=== PATIENT | female | born 1950 | race Caucasian/White ===

== ENCOUNTER → 2016-10-12 | Outpatient (CLI) | payer BC ==
--- NOTE | 2016-10-14 06:54 | MM ---
Reason for exam: screening (asymptomatic). Last mammogram was performed 1 year and 4 months ago. History: Patient is postmenopausal. Family history of breast cancer in paternal aunt. Benign US left guided mammotome of the left breast, March 12, 2008. Took hormonal contraceptives for 4 years beginning at age 20. Physical Findings: A clinical breast exam by your physician is recommended on an annual basis and results should be correlated with mammographic findings. MG 3D Screening Mammo W/Cad Bilateral CC and MLO view(s) were taken. Prior study comparison: June 21, 2015, left breast MG 3d work up w/cad LT. June 14, 2015, bilateral MG screening mammo w CAD. April 20, 2014, bilateral MG screening mammo w CAD. April 18, 2013, bilateral digital screening mammo w/CAD. The breast tissue is heterogeneously dense. This may lower the sensitivity of mammography. Previous mammotome biopsy in the left breast. There is chronic nodularity in the left breast. No significant changes when compared with prior studies. ASSESSMENT: Negative, BI-RAD 1 RECOMMENDATION: Routine screening mammogram of both breasts in 1 year.
== END | disposition home or self-care (01) ==
LOC: RADMAMWWP 16:33
PROVIDERS: ATTEND Obstetrics & Gynecology
DX: Z12.31 Encounter for screening mammogram for malignant neoplasm of breast (principal); Z80.3 Family history of malignant neoplasm of breast
CPT/HCPCS: 77063; G0202

== ENCOUNTER → 2017-03-05 | Outpatient (CLI) | payer BC ==
--- NOTE | 2017-03-05 16:02 | BD ---
EXAMINATION TYPE: MG DEXA axial skeleton. DATE OF EXAM: 03/05/2017 COMPARISON: NONE CLINICAL HISTORY: 66-year-old female known osteopenia Height: 65 Weight: 177.2 FRAX RISK QUESTIONS: Alcohol (3 or more units per day): no Family History (Parent hip fracture): no Glucocorticoids (More than 3mos): no (Ex: prednisone, prednisolone, methylprednisolone, dexamethasone, and hydrocortisone). History of Fracture in Adulthood: yes Secondary Osteoporosis: 1. Type 1 Diabetes: no 2. Hyperthyroidism: no 3. Menopause before 45: no 4. Malnutrition: no 5. Chronic liver disease: no Rheumatoid Arthritis: no Current Tobacco Use: no RISK FACTORS HISTORY OF: Hip Fracture (Right/Left): no Spine Fracture: no History of Wrist Fracture: yes right-2015 Surgery to Spine/Hip(right/left)/Wrist (right/left): no Family History of Osteoporosis: yes Active: yes Diet low in dairy products/other sources of calcium: no Postmenopausal woman: age 56 Lost more than 2 inches in height since high school: no Frequent falls: no Poor Health: no Hyperparathyroidism: no Adrenal Insufficiency: no MEDICATIONS: none Additional History: EXAM MEASUREMENTS: Bone mineral densitometry was performed using the [employer] Mover System. Bone mineral density as measured about the Lumbar spine is: ----- L1-L4(G/cm2): 0.955 T Score Values are as follows: ----- L2: -3.1 ----- L3: -2.0 ----- L4: -0.7 ----- L1-L4: -1.9 Bone mineral density has: decreased -1.9 % since study of: 04.18.2013 Bone mineral density about the R hip (g/cm2): 0.830 Bone mineral density about the L hip (g/cm2): 0.747 T Score values are as follows: -----R Neck: -1.5 -----L Neck: -2.1 -----R Total: -1.7 -----L Total: -1.7 Bone mineral density has: decreases -7.3 % since study of: 04.18.2013 IMPRESSION: Osteoporosis (T Score less than -2.5) as noted by T Score values at the There is increased fracture risk and therapy is usually indicated based on age. Re-Screen 1-2 years. NOTE: T-SCORE=SD OF THE YOUNG ADULT MEAN.
== END | disposition home or self-care (01) ==
LOC: RADBDWWP 08:05
PROVIDERS: ATTEND Obstetrics & Gynecology
DX: M81.0 Age-related osteoporosis without current pathological fracture (principal)
CPT/HCPCS: 77080

== ENCOUNTER → 2017-03-05 | Outpatient (CLI) | payer BC ==
[2017-03-05 16:37] LABS: EKG EKG PERFORMED
[2017-03-05 17:02] LABS: CH 28.3; CHCM 32.9; HCT 40.6 % (34.0-46.0); HDW 2.37; HGB 14.1 gm/dL (11.4-16.0); MCHC 34.6 g/dL (31.0-37.0); MCV 86.6 fL (80.0-100.0); Mean Platelet Volume 7.2; RBC 4.69 m/uL (3.80-5.40); RDW 13.4 % (11.5-15.5); WBC 7.2 k/uL (3.8-10.6)
[2017-03-05 17:08] LABS: Partial Thromboplastin Time 24.5 sec (22.0-30.0); Prothrombin Time 10.5 sec (9.0-12.0)
[2017-03-05 17:10] LABS: ALT 34 U/L (9-52); AST 19 U/L (14-36); Alkaline Phosphatase 105 U/L (38-126); Anion Gap 12 mmol/L; Blood Urea Nitrogen 19 mg/dL (7-17); Calcium 9.6 mg/dL (8.4-10.2); Carbon Dioxide 25 mmol/L (22-30); Chloride 106 mmol/L (98-107); Glucose 109 mg/dL (74-99); Non-African American GFR(MDRD) >60 (>60 ml/min/1.73 sqM); Potassium 4.3 mmol/L (3.5-5.1); Sodium 143 mmol/L (137-145); Total Bilirubin 0.3 mg/dL (0.2-1.3); Total Protein 7.1 g/dL (6.3-8.2)
== END | disposition home or self-care (01) ==
LOC: LABPAT 16:14
PROVIDERS: ATTEND Orthopaedic Surgery
DX: Z01.810 Encounter for preprocedural cardiovascular examination (principal); Z01.812 Encounter for preprocedural laboratory examination
CPT/HCPCS: 80053; 85027; 85610; 85730; 87070; 93005

== ENCOUNTER → 2017-03-12 | Outpatient (CLI) | payer BC ==
[2017-03-12 13:28] LABS: Appearance,Urine Clear (Clear); Bilirubin,Urine Negative (Negative); Glucose,Urine (UA) Negative (Negative); Ketones,Urine Negative (Negative); Leukocyte Esterase,Urine Small (Negative); Mucus,Urine Occasional /hpf; Nitrite,Urine Negative (Negative); Particle Count 3237; Protein,Urine Negative (Negative); Specific Gravity,Urine 1.015 (1.001-1.035); Squamous Epithelial Cell,Urine <1 /hpf (0-4); UA Billing (MACRO vs. MICRO) MICRO; Urobilinogen,Urine <2.0 mg/dL (<2.0); WBC,Urine 1 /hpf (0-5)
== END | disposition home or self-care (01) ==
LOC: LABPAT 12:44
PROVIDERS: ATTEND Orthopaedic Surgery
DX: Z01.812 Encounter for preprocedural laboratory examination (principal)
CPT/HCPCS: 81001

== ENCOUNTER 2017-03-29 10:30 | Inpatient (IN) | payer BC ==
[2017-03-23 14:45] VITALS: BMI 29.2
[~2017-03-29 10:30] MED LIST: ACETAMINOPHEN TAB 500 MG TAB PO ONE; DEXAMETHASONE SOD PHOSPHATE 10 MG/ML 1 ML VIAL IV ONE; HYDROmorphone 1 MG/ML 1 ML SYRINGE IVP PRN; MELOXICAM 7.5 MG TAB PO ONE; MIDAZOLAM 2 MG/2 ML VIAL IV PRN; ONDANSETRON 4 MG/2 ML VIAL IVP ONE; SCOPOLAMINE 1.5MG/72HR PATCH TRANSDERM ONE; TRANEXAMIC ACID 1,000 MG in SODIUM CHLORIDE 0.9% 100 ML IVPB ONE; ceFAZolin 2 GM in SODIUM CHLORIDE 0.9% 100 ML IVPB ONE
[2017-03-29] MEDS ORDERED: ROPIVACAINE 246.25 MG, EPINEPHrine 0.5 MG, KETOROLAC 30 MG, cloNIDine HCL/PF 80 MCG, WA... MISCELLANE ONE ×5 (11:47)
[2017-03-29] MEDS ORDERED: LIDOCAINE 1% 20 ML VIAL (10MG/ML) FOR IV START INTRADERMA ONE (13:17)
[2017-03-29] MEDS: LACTATED RINGERS 1,000 ML IV SCH (13:18)
[2017-03-29] MEDS ORDERED: fentaNYL (PF) 50 MCG/ML 2 ML AMP IV ONE (13:45)
[2017-03-29] MEDS ORDERED: fentaNYL (PF) 50 MCG/ML 2 ML AMP ONE (14:42)
[2017-03-29] MEDS ORDERED: MIDAZOLAM 2 MG/2 ML VIAL ONE (14:42)
[2017-03-29] MEDS ORDERED: ceFAZolin 3,000 MG in SODIUM CHLORIDE 0.9% IRRIGATIO 3,000 ML IRRIGATION ONE (15:13)
[2017-03-29] MEDS ORDERED: ROPIVACAINE 1,100 MG, SODIUM CHLORIDE 0.9% 330 ML MISCELLANE PRN ×2 (15:47)
--- NOTE | 2017-03-29 15:48 | P.ONQ ---
Anesthesiology Proc Note - PNB - Peripheral Nerve Block Performed Right Adductor Canal Indication: Acute Post-Operative Pain, Dx/Pain Location, Requested by physician (Dr june vargas) Sedation Type: Sedate with meaningful contact maintained Preparation: Sterile Dressing Position: Supine Catheter: Indwelling Needle Types: Other (see comment) (Tomas) Needle Size: 100mm (4") Needle Gauge: 18 Technique: Ultrasound Injectate: 0.5% Ropivacaine (see comment for volume) (20cc) Blood Aspirated: No Pain Paresthesia on Injection Noted: No Resistance on Injection: Normal Events: Uneventful and Well Tolerated
[2017-03-29] MEDS ORDERED: LACTATED RINGERS 1,000 ML IV ONE (15:49)
--- NOTE | 2017-03-29 16:07 | P.OP ---
Date of Procedure: 03/29/17 Preoperative Diagnosis: Severe osteoarthritis right knee Postoperative Diagnosis: Severe osteoarthritis right knee Procedure(s) Performed: Right total knee arthroplasty Implants: [employer] Oxinium femoral component size 5, right [employer] Frieda II right nonporous tibial baseplate size 5 [employer]hew size 13 mm Legion XLPE dished articular insert, size 5-6 [employer] Frieda II resurfacing patellar component, 32 mm All components were cemented using Pepper Simplex P bone cement with tobramycin The articulation is ceramic on polyethylene. Anesthesia: spinal Surgeon: Regino Etienne Roofing Sales Representative #1: Tabitha Matson Estimated Blood Loss (ml): 50 Pathology: other (Bone and cartilage) Condition: stable Disposition: PACU Indications for Procedure: After failure of conservative treatment we discussed the surgical and nonsurgical treatment options at length. Patient wishes to proceed with a total knee arthroplasty. Complications specific to this procedure were discussed at length, including but not limited to infection, bleeding, stiffness , and nerve injury. Patient is aware of all these complications and informed consent was obtained Operative Findings: The operative findings are consistent with severe osteoarthritis of the right knee Description of Procedure: Patient was seen in the preoperative area consent was reviewed and operative site was marked with a skin marker. An adductor canal pain catheter was placed by anesthesia in the preoperative area. Patient was then brought to the operating room and given preoperative antibiotics intravenously. A spinal anesthetic was administered by the anesthesia department. A Boyce catheter was inserted by the nursing staff. A tourniquet was placed on the upper thigh and the lower extremity was prepped and draped in usual sterile fashion. A gram of transexamic acid was given. A universal timeout was then performed which confirmed the patient's name, surgical site, ALLERGIES, and consent. The lower extremity was then exsanguinated and tourniquet was inflated to 250 mmHg. A standard and anterior midline approach to the knee was performed. The skin and subcutaneous tissue was dissected down to the patellar tendon. A medial parapatellar arthrotomy was then performed. The knee was then extended, the patellar was everted, and the knee was again flexed. Anterior horns of both menisci were excised, and a release was performed to the posterior medial aspect of the knee. On gross visual inspection, there was complete loss of articular cartilage in the medial and patellofemoral joint spaces. There was also significant cartilage damage in the lateral compartment. There were multiple periarticular osteophytes which were then removed with a Ronguer. The femoral canal was then opened with the appropriate drill, and the intramedullary femoral cutting guide was then placed and set for 4 of valgus. The distal femoral cutting block was then pinned in place, and the distal femur was then cut. The cutting block was then removed and the cut was checked for flatness. Next, the sizing guide was then placed and set for 3 external rotation based off of the epicondylar axis and Whitesides line. After the femur was sized, the appropriate 4-in-1 cutting block was then pinned in place. The anterior condyles were cut without notching. The posterior and chamfer cuts were performed while protecting the collateral ligaments. The cutting block was then removed, and the femoral canal was plugged with autologous bone. Attention was then directed to the tibia. The remaining ACL was removed with a Ronguer, and the tibia was then gently subluxed forward with a large bent knee retractor. Any remaining menisci was excised. The posterior lateral corner was cauterized in order to cauterize the lateral geniculate artery. The extra medullary tibial cutting guide was then placed, set for the appropriate rotation , slope, and depth of resection. The proximal tibia cutting guide was then pinned in place. Proximal tibia was then cut and sized. Next trials were then placed with the appropriate-sized insert. The knee was able to fully extend and flex to 130 and was stable throughout all range of motion. The knee was then extended, patella everted. Patella was then measured, and then using an osteotomy guide, the patella was cut at the appropriate level. The patella was then measured and drilled and the patella trial was then placed. The knee was then taken through range of motion with the patella trial and the patella tracked normally. The knee was then extended patella trial was then removed and the patella was everted. Knee was then flexed and lug holes were drilled through the femoral trial and the femoral trial was then removed. The tibial was then exposed, and the tibial broach guide was then pinned in place after it was set for the appropriate rotation to allow for the most coverage without overhang. The tibia was then reamed and broached. The cut surfaces of bone were then irrigated with pulsatile lavage. The posterior structures were injected with the ropivacaine solution. The knee was also irrigated with Irrisept solution. The components were then opened, the cement was mixed, and the components were then cemented in place. The cement was allowed to harden with the knee in full extension. While the cement was hardening, the remaining soft tissues were then injected with a ropivacaine solution, which consisted of 246.25 mg of ropivacaine, 0.5 mg of epinephrine, 30 mg of Toradol, 80 g of clonidine, and 48.45 mL of sterile water, for a total of 100 mL of fluid injected. After the cemented hardened. The tourniquet was released, and hemostasis was obtained. A second gram of transexamic acid was given. The knee was again irrigated. The knee was again taken through range of motion and found to be stable throughout all range of motion of 0-130 , and the patella tracked normally. The fascia was then closed with #2 strata fix suture. The subcutaneous tissue was closed with 3-0 Vicryl and 3-0 strata fix. Dermabond tape was used for the skin and placed with the knee in flexion. The patient was placed in a sterile dressing. Patient was then transferred to recovery room in stable condition. The student assistant LYLE Castrejon was required due the complexity surgery and the need for a skilled surgical assistant certified. She assisted in positioning, draping, retraction, and closure of the wound.
[2017-03-29] MEDS ORDERED: HYDROmorphone 1 MG/ML 1 ML SYRINGE IVP PRN ×2 (16:25)
[2017-03-29] MEDS ORDERED: MAGNESIUM HYDROXIDE 2,400 MG/10 ML CUP PO PRN (16:25)
[2017-03-29] MEDS ORDERED: ONDANSETRON 4 MG/2 ML VIAL IVP PRN (16:25)
[2017-03-29] MEDS ORDERED: NALOXONE 0.4 MG/ML 1 ML VIAL IV PRN (16:25)
[2017-03-29] MEDS ORDERED: BISACODYL 10 MG SUPP RECTAL PRN (16:25)
[2017-03-29] MEDS ORDERED: DIAZEPAM 5 MG TAB PO PRN ×2 (16:25)
[2017-03-29] MEDS ORDERED: HYDROcodone/APAP 5-325MG 1 EACH TAB PO PRN (16:25)
[2017-03-29] MEDS ORDERED: NA PHOS,M-B/NA PHOS,DI-BA 133 ML ENEMA RECTAL PRN (16:25)
--- NOTE | 2017-03-29 16:47 | XR ---
EXAMINATION TYPE: XR knee limited RT DATE OF EXAM: 03/29/2017 CLINICAL HISTORY: Right knee pain and arthritis status post total knee replacement. TECHNIQUE: Portable AP and crosstable lateral views of the right knee are obtained immediately posto peratively. COMPARISON: None FINDINGS: Metallic hardware from total right total knee arthroplasty is seen and appears satisfactor y in alignment and position. There is evidence of recent surgery with diffuse subcutaneous gas , lelo tical skin munira, and percutaneous suprapatellar surgical drain noted. IMPRESSION: METALLIC HARDWARE FROM TOTAL RIGHT TOTAL KNEE ARTHROPLASTY IS SATISFACTORY IN ALIGNMENT.
[2017-03-29] MEDS: HYDROmorphone 1 MG/ML 1 ML SYRINGE IVP PRN ×2 (18:31→21:46)
[2017-03-29] MEDS: SODIUM CHLORIDE 0.9% 1,000 ML IV SCH ×2 (20:32→23:55)
[2017-03-29] MEDS: SENNOSIDES-DOCUSATE SODIUM 1 EACH TAB PO SCH (20:36)
[2017-03-29] MEDS: ASPIRIN 325 MG TAB PO SCH (20:36)
[2017-03-29] MEDS: ceFAZolin 2 GM in SODIUM CHLORIDE 0.9% 100 ML IVPB SCH (23:55)
[2017-03-30] MEDS: LACTATED RINGERS 1,000 ML IV SCH (03:40)
[2017-03-30] MEDS: HYDROmorphone 1 MG/ML 1 ML SYRINGE IVP PRN (06:01)
[2017-03-30 07:20] LABS: Basophils % (A) 0 %; CH 29.2; CHCM 32.8; Eosinophils % (A) 0 %; HCT 37.9 % (34.0-46.0); HDW 2.32; HGB 11.8 gm/dL (11.4-16.0); Luc # (Auto) 0.12; Luc % (Auto) 1; Lymphocytes # (A) 1.7 k/uL (1.0-4.8); Lymphocytes % (A) 11 %; MCH 27.9 pg (25.0-35.0); MCHC 31.2 g/dL (31.0-37.0); MCV 89.3 fL (80.0-100.0); Mean Platelet Volume 7.2; Monocytes # (A) 0.6 k/uL (0-1.0); Monocytes % (A) 4 %; Neutrophils # (A) 13.1 k/uL (1.3-7.7); Neutrophils % (A) 84 %; RBC 4.25 m/uL (3.80-5.40); RDW 13.8 % (11.5-15.5); WBC 15.5 k/uL (3.8-10.6); WBC (Perox) 15.89
[2017-03-30] MEDS: ASPIRIN 325 MG TAB PO SCH ×2 (07:36→21:46)
[2017-03-30] MEDS: MELOXICAM 7.5 MG TAB PO SCH (07:36)
[2017-03-30] MEDS: hydrOXYzine PAMOATE 25 MG CAP PO PRN ×3 (07:37→19:23)
[2017-03-30] MEDS: HYDROcodone/APAP 5-325MG 1 EACH TAB PO PRN ×3 (07:37→19:23)
[2017-03-30] MEDS: ceFAZolin 2 GM in SODIUM CHLORIDE 0.9% 100 ML IVPB SCH (09:08)
--- NOTE | 2017-03-30 09:10 | P.PN ---
Progress Note - Text The patient is status post right adductor canal catheter placement. The catheter was placed for postoperative pain control, status post total right arthroplasty. Ropivacaine 0.2% is infusing at 8 mLs per hour. The patient has no complaints of right lower extremity numbness or weakness. Patient's VAS score is 1 -10. Assessment: Patient's adductor canal catheter is in place and working appropriately. Plan: continue infusion and adjust it as needed.
--- NOTE | 2017-03-30 12:22 | P.PN ---
Subjective Principal diagnosis: S/p right total knee arthroplasty This is a well-appearing 66-year-old female who is status post right total knee arthroplasty. This is postoperative day #1. Patient was seen and evaluated at the bedside with Dr. Regino Etienne today. Patient states she is doing well and has been up and out of bed several times. Patient states her pain is under control. Patient has no new complaints today. Objective - Vital Signs Vital signs: Vital Signs Temp 97.6 F 03/30/17 07:00 Pulse 68 03/30/17 07:00 Resp 16 03/30/17 07:00 BP 107/69 03/30/17 07:00 Pulse Ox 96 03/30/17 07:00 Intake & Output 03/29/17 03/30/17 03/30/17 18:59 06:59 18:59 Intake Total 2401 1770 480 Output Total 850 200 Balance 1551 1770 280 Weight 79.832 kg Intake: IV 2401 Intake, IV Titration 770 Amount Sodium Chloride 0.9% 1, 770 000 ml @ 70 mls/hr IV . [id number] [facility] Rx#:[id number] Oral 1000 480 Output: Urine 800 200 Uretheral (Boyce) 200 Estimated Blood Loss 50 Other: Voiding Method Indwelling Catheter Indwelling Catheter # Voids 1,100 - Exam Vital signs are stable. Patient is in no acute distress and is alert and oriented 3. Calf is soft and nontender. Dressing is intact. Neurovascular status intact. Patient has full foot and ankle motion. - Labs CBC & Chem 7: 03/30/17 06:59 Labs: Abnormal Lab Results - Last 24 Hours (Table) 03/30/17 Range/Units 06:59 WBC 15.5 H (3.8-10.6) k/uL Neutrophils # 13.1 H (1.3-7.7) k/uL Assessment and Plan (1) Primary osteoarthritis of right knee Status: Acute (2) S/P total knee arthroplasty Status: Acute Plan: #1 Continue with routine postoperative care. #2 Anticoagulation with aspirin. #3 Physical therapy and CPM today. #4 Appreciated input from medicine. #5 Anticipate discharge home with home care likely tomorrow.
--- NOTE | 2017-03-30 13:37 | P.CONS ---
History of Present Illness - Reason for Consult Consult date: 03/30/17 Medical management Requesting physician: Regino Etienne - History of Present Illness This is an 70-year-old female patient of Dr. Dann Samson with history of osteoarthritis and prolapsed uterus, with interstitial for Mnire's of the proximal arthritis of the right knee ended up going for right total arthroplasty that was done successfully by Dr. Etienne Lanoxin the patient for medical management. Patient sitting up in bed in no acute distress no chest pain, shortness breath, she denies any abdominal pain, nausea, vomiting, and some headache. Review of Systems Constitutional: Denies chills, Denies lethargy, Denies malaise, Denies weight gain Eyes: denies blurred vision, denies bulging eye, denies decreased vision, denies diplopia Ears: deny: decreased hearing Ears, nose, mouth and throat: Denies dysphagia, Denies neck lump, Denies sore throat Cardiovascular: Denies chest pain, Denies dyspnea on exertion, Denies high blood pressure, Denies irregular heart beat, Denies phlebitis, Denies rapid heart beat, Denies shortness of breath Respiratory: Denies congestion, Denies cough, Denies cough with sputum, Denies home oxygen, Denies sleep apnea, Denies snoring, Denies wheezing Gastrointestinal: Denies abdominal pain, Denies bloating, Denies hematemesis, Denies melena, Denies nausea, Denies vomiting Genitourinary: Denies flank pain, Denies urgency Musculoskeletal: Denies myalgias Musculoskeletal: right: hip swelling, knee pain, knee stiffness, absent: ankle pain, ankle stiffness, ankle swelling, elbow pain, elbow stiffness, elbow swelling, foot pain, foot stiffness, foot swelling, hand pain, hand stiffness, hand swelling, hip pain, hip stiffness, knee swelling, shoulder pain, shoulder stiffness, shoulder swelling, wrist pain, wrist stiffness, wrist swelling Past Medical History Past Medical History: Osteoarthritis (OA) Additional Past Medical History / Comment(s): prolapsed uterus-uses a pessary History of Any Multi-Drug Resistant Organisms: None Reported Past Surgical History: Hernia Repair, Joint Replacement, Orthopedic Surgery, Tonsillectomy Additional Past Surgical History / Comment(s): umbilical hernia repair, bilat knee scopes, lt ankle tendon repair, colonoscopy,. d & c after miscarriage, right knee total arthroplasty Past Anesthesia/Blood Transfusion Reactions: Motion Sickness, Postoperative Nausea & Vomiting (PONV) Past Psychological History: No Psychological Hx Reported Smoking Status: Never smoker Past Alcohol Use History: Rare Additional Past Alcohol Use History / Comment(s): Patient is a lifelong nonsmoker. No marijuana or illicit drug use. Social alcohol use. Past Drug Use History: None Reported - Past Family History Father Family Medical History: Cancer Additional Family Medical History / Comment(s): Father from prostate cancer with metastatic disease to the bone Mother Additional Family Medical History / Comment(s): Mother is alive at age 86 with history of TB status post lung resection. Brother(s) Additional Family Medical History / Comment(s): Patient has 2 brothers with no major medical problems. Patient has one sister that has osteoarthritis and knee replacement. Patient has 3 children, 2 boys and one girl with no major medical problems. Medications and Allergies Home Medications Medication Instructions Recorded Confirmed Type metroNIDAZOLE [Flagyl] 250 mg PO TID 03/29/17 03/29/17 History Allergies Allergy/AdvReac Type Severity Reaction Status Date / Time No Known Allergies Allergy Verified 03/23/17 14:35 Physical Exam Vitals: Vital Signs Temp Pulse Resp BP BP Pulse Ox 03/30/17 07:00 97.6 F 68 16 107/69 96 03/30/17 02:56 98.5 F 73 16 100/62 94 L 03/29/17 19:30 77 16 128/69 03/29/17 19:15 84 16 125/76 03/29/17 19:00 76 16 125/77 03/29/17 18:45 84 16 130/76 03/29/17 18:30 87 16 106/57 96 03/29/17 18:15 72 16 111/68 96 03/29/17 18:00 78 16 120/69 93 L 03/29/17 17:45 80 16 121/74 94 L 03/29/17 17:30 97.9 F 84 16 139/78 96 03/29/17 17:15 67 16 100/59 98 03/29/17 17:00 67 16 101/59 98 03/29/17 16:45 70 16 99/53 96 03/29/17 16:32 72 16 100/55 99 03/29/17 16:24 97.4 F L 73 16 104/55 99 03/29/17 13:59 88 16 141/66 99 03/29/17 13:44 81 16 138/66 94 L 03/29/17 13:07 98.0 F 84 16 142/70 97 Intake and Output 03/29/17 03/30/17 03/30/17 22:59 06:59 14:59 Intake Total 1111 1060 480 Output Total 850 200 Balance 261 1060 280 Intake: IV 401 Intake, IV Titration 210 560 Amount Sodium Chloride 0.9% 1, 210 560 000 ml @ 70 mls/hr IV . [id number] [facility] Rx#:[id number] Oral 500 500 480 Output: Urine 800 200 Uretheral (Boyce) 200 Estimated Blood Loss 50 Other: Voiding Method Indwelling Catheter Indwelling Catheter # Voids 1,100 Weight 79.832 kg - Constitutional General appearance: no acute distress - EENT Eyes: anicteric sclerae, EOMI, PERRLA, no ptosis, no scleral icterus, normal appearance ENT: hearing grossly normal, NA/AT, normal oropharynx, no thrush Ears: bilateral: normal - Neck Neck: no lymphadenopathy, normal ROM, no rigidity, no stridor, no thyromegaly Carotids: bilateral: upstroke normal Thyroid: bilateral: normal size - Respiratory Respiratory: bilateral: CTA, negative: diminished, dullness, rales, rhonchi, wheezing, prolonged expiration - Cardiovascular Rhythm: regular Heart sounds: normal: S1, S2 Abnormal Heart Sounds: no systolic murmur, no diastolic murmur, no rub, no S3 Gallop, no S4 Gallop, no click - Gastrointestinal General gastrointestinal: normal bowel sounds, soft, no splenomegaly, no tenderness, no umbilical hernia, no ventral hernia - Integumentary Integumentary: normal, normal turgor - Neurologic Neurologic: CNII-XII intact - Musculoskeletal Musculoskeletal: strength equal bilaterally - Psychiatric Psychiatric: A&O x's 3, appropriate affect, intact judgment & insight Results CBC & Chem 7: 03/30/17 06:59 Labs: Abnormal Lab Results - Last 24 Hours (Table) 03/30/17 Range/Units 06:59 WBC 15.5 H (3.8-10.6) k/uL Neutrophils # 13.1 H (1.3-7.7) k/uL Assessment and Plan Plan: Assessment and plan: 1. Post operative day #1 status post right total knee arthroplasty. Continue current pain management as outlined by orthopedic surgery, physical therapy evaluation, continues incentive spirometer to reduce the incidence of atelectasis and hospital-acquired pneumonia, continue DVT prophylaxis as per orthopedic service. 2. Headache. Continue current pain management. 3. GERD. Continue PPI. 4. Osteoarthritis. Continue Mobic 7.5 mg orally once every day. 5. Thank you for the consult we will follow with you.
[2017-03-30] MEDS: SENNOSIDES-DOCUSATE SODIUM 1 EACH TAB PO SCH (21:45)
[2017-03-30 22:23] VITALS: RESP 16
[2017-03-30] MEDS: SODIUM CHLORIDE 0.9% 1,000 ML IV SCH (23:22)
[2017-03-31] MEDS: HYDROcodone/APAP 5-325MG 1 EACH TAB PO PRN ×3 (01:32→12:56)
[2017-03-31] MEDS: hydrOXYzine PAMOATE 25 MG CAP PO PRN ×3 (01:33→12:58)
[2017-03-31] MEDS: LACTATED RINGERS 1,000 ML IV SCH (02:56)
[2017-03-31 07:58] VITALS: BP 112/57; PULSE 69; TEMP 97.8
--- NOTE | 2017-03-31 09:38 | P.DS ---
Providers Date of admission: 03/29/17 12:34 Expected date of discharge: 03/31/17 Attending physician: Regino Etienne Consults: 03/29/17 16:25 Consult Physician Routine Consulting Provider: Yvette Hardin Consult Reason/Comments: medical management Do you want consulting provider notified?: Yes Primary care physician: Dann Samson - Discharge Diagnosis(es) (1) Primary osteoarthritis of right knee Current Visit: Yes Status: Acute (2) S/P total knee arthroplasty Current Visit: Yes Status: Acute Hospital Course: This is a 66-year-old female with known history of degenerative arthritis of the right knee. The patient presents for evaluation. After discussion and consideration patient elects to proceed with total knee arthroplasty. The patient is seen preoperatively by Dr. Etienne and cleared for surgery. Patient is admitted to [facility] on 03/29/2017 for total knee arthroplasty. The procedures performed without complication or sequelae. The patient is doing well postoperatively. Labs and vital signs are stable on day of discharge. On day of discharge patient's knee incision is healing well. There is minimal erythema. There is mild drainage noted at this time. There is minimal soft tissue swelling to the knee. Patient has full foot and ankle motion without difficulty or pain. Neurovascular status to the right lower extremity is intact. Patient is discharged home in good condition. Please see med rec for accurate list of home medications. Plan - Discharge Summary New Discharge Prescriptions: New Aspirin 325 mg PO BID #60 tab HYDROcodone/APAP 5-325MG [[place] 5-325] 1 - 2 tab PO Q4-6H PRN #90 tab PRN Reason: Pain Sennosides-Docusate Sodium [Senokot-S] 1 tab PO BID #60 tablet hydrOXYzine PAMOATE [Vistaril] 25 mg PO TID #15 cap No Action metroNIDAZOLE [Flagyl] 250 mg PO TID Discharge Medication List metroNIDAZOLE [Flagyl] 250 mg PO TID 03/29/17 [History] Aspirin 325 mg PO BID #60 tab 03/31/17 [Rx] HYDROcodone/APAP 5-325MG [[place] 5-325] 1 - 2 tab PO Q4-6H PRN #90 tab 03/31/17 [ Rx] Sennosides-Docusate Sodium [Senokot-S] 1 tab PO BID #60 tablet 03/31/17 [Rx] hydrOXYzine PAMOATE [Vistaril] 25 mg PO TID #15 cap 03/31/17 [Rx] Follow up Appointment(s)/Referral(s): [facility], [NON-STAFF] - 1 Week Regino Etienne DO [Doctor of Osteopathic Medicine] - 2 Weeks Ambulatory/Diagnostic Orders: Continuous Passive Motion (CPM) Machine [DME.AMB1] Time Frame: 2 Weeks, Location : Determined By Patient Activity/Diet/Wound Care/Special Instructions: Weightbearing as tolerated with a walker CPM 5-6h daily Daily dressing changes, keep incision clean and dry May shower if no drainage from incision Call [facility] with questions or concerns [phone] Discharge Disposition: HOME WITH HOME HEALTH SERVICES
[2017-03-31] MEDS: ASPIRIN 325 MG TAB PO SCH (10:22)
[2017-03-31] MEDS: MELOXICAM 7.5 MG TAB PO SCH (10:23)
[2017-03-31] MEDS: SODIUM CHLORIDE 0.9% 1,000 ML IV SCH (12:42)
--- NOTE | 2017-03-31 15:07 | P.PN ---
Subjective This is an 70-year-old female patient of Dr. Dann Samson with history of osteoarthritis and prolapsed uterus, with interstitial for Mnire's of the proximal arthritis of the right knee ended up going for right total arthroplasty that was done successfully by Flako Saravia the patient for medical management. Patient sitting up in bed in no acute distress no chest pain, shortness breath, she denies any abdominal pain, nausea, vomiting, and some headache. patient's pain is controlled. She is scheduled for discharge today by orthopedics. Medications reviewed. Objective - Vital Signs Vital signs: Vital Signs Temp 97.8 F 03/31/17 07:00 Pulse 69 03/31/17 07:00 Resp 16 03/31/17 07:00 BP 112/57 03/31/17 07:00 Pulse Ox 96 03/31/17 07:00 Intake & Output 03/30/17 03/31/17 03/31/17 18:59 06:59 18:59 Intake Total 1320 1000 480 Output Total 500 Balance 820 1000 480 Intake: Oral 1320 1000 480 Output: Urine 500 Uretheral (Boyce) 200 Other: Voiding Method Indwelling Catheter Toilet # Voids 2 - Exam General appearance: no acute distress - EENT Eyes: anicteric sclerae, EOMI, PERRLA, no ptosis, no scleral icterus, normal appearance ENT: hearing grossly normal, NA/AT, normal oropharynx, no thrush Ears: bilateral: normal - Neck Neck: no lymphadenopathy, normal ROM, no rigidity, no stridor, no thyromegaly Carotids: bilateral: upstroke normal Thyroid: bilateral: normal size - Respiratory Respiratory: bilateral: CTA, negative: diminished, dullness, rales, rhonchi, wheezing, prolonged expiration - Cardiovascular Rhythm: regular Heart sounds: normal: S1, S2 Abnormal Heart Sounds: no systolic murmur, no diastolic murmur, no rub, no S3 Gallop, no S4 Gallop, no click - Gastrointestinal General gastrointestinal: normal bowel sounds, soft, no splenomegaly, no tenderness, no umbilical hernia, no ventral hernia - Integumentary Integumentary: normal, normal turgor - Neurologic Neurologic: CNII-XII intact - Musculoskeletal Musculoskeletal: strength equal bilaterally - Psychiatric Psychiatric: A&O x's 3, appropriate affect, intact judgment & insight - Labs CBC & Chem 7: 03/30/17 06:59 Assessment and Plan Plan: 1. Status post right total knee arthroplasty. Continue current pain management as outlined by orthopedic surgery, physical therapy evaluation, continues incentive spirometer to reduce the incidence of atelectasis and hospital-acquired pneumonia, continue DVT prophylaxis as per orthopedic service. 2. Headache. Continue current pain management. 3. GERD. Continue PPI. 4. Osteoarthritis. Continue Mobic 7.5 mg orally once every day. Impression and plan of care have been directed as dictated by the signing physician. Lydia Warner nurse practitioner acting as scribe for signing physician.
== END 2017-03-31 17:54 | disposition home health service (06) | DRG 470 ==
LOC: 2ORMAIN 12:34 → 3SUR 16:29
PROVIDERS: ADMIT Orthopaedic Surgery; ATTEND Orthopaedic Surgery
PROC: 0SRC0J9 Replacement of Right Knee Joint with Synthetic Substitute, Cemented, Open Approach (ICD-10-PCS; principal; 2017-03-29 15:20)
DX: M17.0 Bilateral primary osteoarthritis of knee (principal); K21.9 Gastro-esophageal reflux disease without esophagitis; N81.4 Uterovaginal prolapse, unspecified; R51 Headache; Z79.2 Long term (current) use of antibiotics
CPT/HCPCS: 85025; 88300

== ENCOUNTER → 2017-12-24 | Outpatient (CLI) | payer BC ==
--- NOTE | 2017-12-27 11:07 | MM ---
Reason for exam: screening (asymptomatic). Last mammogram was performed 1 year and 2 months ago. History: Patient is postmenopausal. Family history of breast cancer in paternal aunt. Benign US left guided mammotome of the left breast, March 12, 2008. Took hormonal contraceptives for 4 years beginning at age 20. Physical Findings: A clinical breast exam by your physician is recommended on an annual basis and results should be correlated with mammographic findings. MG 3D Screening Mammo W/Cad Bilateral CC and MLO view(s) were taken. Prior study comparison: October 12, 2016, bilateral MG 3d screening mammo w/cad. June 21, 2015, left breast MG 3d work up w/cad LT. The breast tissue is heterogeneously dense. This may lower the sensitivity of mammography. Left biopsy marker noted. ASSESSMENT: Negative, BI-RAD 1 RECOMMENDATION: Routine screening mammogram of both breasts in 1 year.
== END | disposition home or self-care (01) ==
LOC: RADMAMWWP 16:51
PROVIDERS: ATTEND Obstetrics & Gynecology
DX: Z12.31 Encounter for screening mammogram for malignant neoplasm of breast (principal)
CPT/HCPCS: 77063; 77067

== ENCOUNTER → 2018-02-11 | Outpatient (CLI) | payer BC | END | disposition home or self-care (01) | LOC: RADXRMAIN 18:45 | PROVIDERS: ATTEND Obstetrics & Gynecology | DX: R82.99 Other abnormal findings in urine (principal); Z53.9 Procedure and treatment not carried out, unspecified reason ==

== ENCOUNTER → 2020-03-18 | Outpatient (CLI) | payer BC ==
[2020-03-18 09:25] LABS: HCT 41.5 % (34.0-46.0); HGB 13.7 gm/dL (11.4-16.0); MCH 29.1 pg (25.0-35.0); MCV 88.2 fL (80.0-100.0); Platelet Count 285 k/uL (150-450); RBC 4.71 m/uL (3.80-5.40); RDW 13.6 % (11.5-15.5); WBC 5.9 k/uL (3.8-10.6)
[2020-03-18 11:18] LABS: Albumin 4.1 g/dL (3.5-5.0); Calcium 9.8 mg/dL (8.4-10.2); Potassium 4.8 mmol/L (3.5-5.1); Total Bilirubin 0.5 mg/dL (0.2-1.3); Total Protein 6.9 g/dL (6.3-8.2)
[2020-03-18 11:35] LABS: T4, Free (Free Thyroxine) 1.16 ng/dL (0.78-2.19)
--- NOTE | 2020-03-21 15:06 | MM ---
Reason for exam: screening (asymptomatic). Last mammogram was performed 2 years and 3 months ago. History: Patient is postmenopausal. Family history of breast cancer in paternal aunt. Benign US left guided mammotome of the left breast, March 12, 2008. Took hormonal contraceptives for 4 years beginning at age 20. Physical Findings: A clinical breast exam by your physician is recommended on an annual basis and results should be correlated with mammographic findings. MG 3D Screening Mammo W/Cad Bilateral CC and MLO view(s) were taken. Prior study comparison: December 24, 2017, bilateral MG 3d screening mammo w/cad. October 12, 2016, bilateral MG 3d screening mammo w/cad. The breast tissue is heterogeneously dense. This may lower the sensitivity of mammography. There is no discrete abnormality. No significant changes when compared with prior studies. ASSESSMENT: Negative, BI-RAD 1 RECOMMENDATION: Routine screening mammogram of both breasts in 1 year.
== END | disposition home or self-care (01) ==
LOC: RADMAMWWP 16:17
PROVIDERS: ATTEND Obstetrics & Gynecology
DX: Z12.31 Encounter for screening mammogram for malignant neoplasm of breast (principal); Z13.29 Encounter for screening for other suspected endocrine disorder; Z13.220 Encounter for screening for lipoid disorders
CPT/HCPCS: 77063; 77067; 80053; 80061; 82306; 84439; 84443; 84479; 85027

== ENCOUNTER → 2020-03-18 | Outpatient (CLI) | payer BC ==
--- NOTE | 2020-03-18 14:01 | BD ---
EXAMINATION TYPE: Axial Bone Density DATE OF EXAM: 03/18/2020 COMPARISON: 03/05/2017 CLINICAL HISTORY: Height: 64.5 IN Weight: 194 LBS FRAX RISK QUESTIONS: History of Fracture in Adulthood: LT WRIST AGE 56 RISK FACTORS HISTORY OF: History of Wrist Fracture: YES LEFT AGE 56 Family History of Osteoporosis: YES Active: YES Postmenopausal woman: AGE 56 MEDICATIONS: Additional Medications: CALCIUM, VIT D, EXAM MEASUREMENTS: Bone mineral densitometry was performed using the Graceful Tables System. Bone mineral density as measured about the Lumbar spine is: ----- L1-L4(G/cm2): 0.971 T Score Values are as follows: ----- L2: -2.3 ----- L3: -2.4 ----- L4: -0.7 ----- L1-L4: -1.7 Bone mineral density has: Increased 1.9% since study of: 03/05/2017 Bone mineral density about the R hip (g/cm2): 0.834 Bone mineral density about the L hip (g/cm2): 0.701 T Score values are as follows: -----R Neck: -1.5 -----L Neck: -2.4 -----R Total: -1.4 -----L Total: -1.8 Bone mineral density has: Increased 2.4% since study of: 03/05/2017 IMPRESSION: Osteopenia (T Score between -2.5 and -1). There is slightly increased risk of fracture and the patient may be considered for treatment. Re-Screen 2-5 years. NOTE: T-SCORE=SD OF THE YOUNG ADULT MEAN.
== END | disposition home or self-care (01) ==
LOC: RADBDWWP 08:02
PROVIDERS: ATTEND Obstetrics & Gynecology
DX: M85.80 Other specified disorders of bone density and structure, unspecified site (principal)
CPT/HCPCS: 77080

== ENCOUNTER → 2021-07-07 | Outpatient (CLI) | payer BC ==
--- NOTE | 2021-07-09 10:25 | MM ---
Reason for exam: screening (asymptomatic). Last mammogram was performed 1 year and 4 months ago. History: Patient is postmenopausal. Family history of breast cancer in paternal aunt. Benign US left guided mammotome of the left breast, March 12, 2008. Took hormonal contraceptives for 4 years beginning at age 20. Physical Findings: A clinical breast exam by your physician is recommended on an annual basis and results should be correlated with mammographic findings. MG 3D Screening Mammo W/Cad Bilateral CC and MLO view(s) were taken. Prior study comparison: March 18, 2020, bilateral MG 3d screening mammo w/cad. December 24, 2017, bilateral MG 3d screening mammo w/cad. The breast tissue is heterogeneously dense. This may lower the sensitivity of mammography. There are benign appearing round calcifications in the right breast. Previous mammotome biopsy in the left breast. There is no discrete abnormality. ASSESSMENT: Benign, BI-RAD 2 RECOMMENDATION: Routine screening mammogram of both breasts in 1 year.
== END | disposition home or self-care (01) ==
LOC: RADMAMWWP 16:46
PROVIDERS: ATTEND Obstetrics & Gynecology
DX: Z12.31 Encounter for screening mammogram for malignant neoplasm of breast (principal); Z78.0 Asymptomatic menopausal state; Z80.3 Family history of malignant neoplasm of breast
CPT/HCPCS: 77063; 77067

== ENCOUNTER → 2022-03-04 | Outpatient (CLI) | payer BC ==
[2022-03-04 17:30] LABS: Partial Thromboplastin Time 24.6 sec (22.0-30.0); Prothrombin Time 10.4 sec (9.0-12.0)
[2022-03-04 22:49] LABS: ALT 21 U/L (8-44); AST 18 U/L (13-35); African American GFR (CKD) 101.7 (60.0-200.0); Albumin 4.2 g/dL (3.8-4.9); Albumin/Globulin Ratio 1.68 (1.60-3.17); Alkaline Phosphatase 107 U/L (41-126); BUN/Creat Ratio 24.14 Ratio (12.00-20.00); Blood Urea Nitrogen 16.9 mg/dL (9.0-27.0); Calcium 9.3 mg/dL (8.7-10.3); Carbon Dioxide 28.2 mmol/L (20.0-27.5); Chloride 104 mmol/L (96-109); Globulin 2.5 g/dL (1.6-3.3); Glucose 101 mg/dL (70-110); Non-African American GFR(CKD) 87.8 (60.0-200.0); Potassium 3.8 mmol/L (3.5-5.5); Sodium 142 mmol/L (135-145); Total Bilirubin <0.15 mg/dL (0.30-1.20); Total Protein 6.7 g/dL (6.2-8.2)
[2022-03-04 22:56] LABS: HCT 42.7 % (37.2-46.3); HGB 13.6 g/dL (12.0-15.0); MCHC 31.9 g/dL (32.0-37.0); MCV 87.9 fL (80.0-97.0); Mean Platelet Volume 10.1 fL (9.5-12.2); NRBC Per 100 WBC 0 /100 WBCS (0.0-0.0); Platelet Count 333 X 10*3/uL (140-440); RBC 4.86 X 10*6/uL (4.10-5.20); RDW 13.9 % (11.5-14.5)
[2022-03-04 23:06] LABS: Appearance,Urine Cloudy (Clear); Bilirubin,Urine Negative (Negative); Blood,Urine Negative (Negative); Color,Urine Yellow (Yellow); Ketones,Urine Negative (Negative); Nitrite,Urine Positive (Negative); Specific Gravity,Urine 1.013 (1.001-1.030); Urobilinogen,Urine 0.2 (0.2,1.0)
[2022-03-04 23:26] LABS: Bacteria,Urine 3+ /HPF (None Seen)
== END | disposition home or self-care (01) ==
LOC: LABPAT 15:22
PROVIDERS: ATTEND Orthopaedic Surgery
DX: Z01.818 Encounter for other preprocedural examination (principal)
CPT/HCPCS: 80053; 81001; 85027; 85610; 85730; 87070; 93005

== ENCOUNTER 2022-03-10 09:21 | Observation (INO) | payer BC ==
[2022-03-05 11:19] VITALS: BMI 31.6
[~2022-03-10 09:21] MED LIST changes: -ACETAMINOPHEN TAB 500 MG TAB PO ONE; +ACETAMINOPHEN TAB 500 MG TAB PO PRN; -DEXAMETHASONE SOD PHOSPHATE 10 MG/ML 1 ML VIAL IV ONE; +GABAPENTIN 300 MG CAP PO PRN; -HYDROmorphone 1 MG/ML 1 ML SYRINGE IVP PRN; -MELOXICAM 7.5 MG TAB PO ONE; +MELOXICAM 7.5 MG TAB PO PRN; -MIDAZOLAM 2 MG/2 ML VIAL IV PRN; -ONDANSETRON 4 MG/2 ML VIAL IVP ONE; -SCOPOLAMINE 1.5MG/72HR PATCH TRANSDERM ONE; -TRANEXAMIC ACID 1,000 MG in SODIUM CHLORIDE 0.9% 100 ML IVPB ONE; +TRANEXAMIC ACID IN NACL,ISO-OS 1,000 MG in SALINE 1 100ML.BAG IVPB PRN; -ceFAZolin 2 GM in SODIUM CHLORIDE 0.9% 100 ML IVPB ONE
[2022-03-10] MEDS: LACTATED RINGERS 1,000 ML IV SCH ×3 (10:18→15:24)
[2022-03-10] MEDS ORDERED: ONDANSETRON 4 MG/2 ML VIAL ONE (10:24)
[2022-03-10] MEDS ORDERED: ONDANSETRON 4 MG/2 ML VIAL IVP ONE (10:35)
[2022-03-10] MEDS ORDERED: DEXAMETHASONE SOD PHOSPHATE 4 MG/ML 1 ML VIAL IVP ONE (10:35)
[2022-03-10] MEDS ORDERED: MELOXICAM 7.5 MG TAB PO ONE (10:35)
[2022-03-10] MEDS ORDERED: MIDAZOLAM 2 MG/2 ML VIAL IVP ONE (10:45)
[2022-03-10] MEDS ORDERED: fentaNYL (PF) 50 MCG/ML 2 ML AMP IVP ONE (10:45)
[2022-03-10] MEDS ORDERED: SODIUM CHLORIDE 0.9% (PF) 10 ML VIAL ONE (11:19)
[2022-03-10] MEDS ORDERED: ROPIVACAINE 5 MG/ML 30 ML VIAL ONE (11:19)
[2022-03-10] MEDS ORDERED: MIDAZOLAM 2 MG/2 ML VIAL ONE (11:19)
[2022-03-10] MEDS ORDERED: fentaNYL (PF) 50 MCG/ML 2 ML AMP ONE (11:19)
[2022-03-10] MEDS ORDERED: PROPOFOL 10 MG/ML 20 ML VIAL IV ONE (11:19)
[2022-03-10] MEDS ORDERED: TRANEXAMIC ACID IN NACL,ISO-OS 1,000 MG/100 ML BAG ONE (11:19)
[2022-03-10] MEDS ORDERED: LIDOCAINE 2% INJ 20 MG/ML (2 ML VIAL) ONE (11:19)
[2022-03-10] MEDS ORDERED: PHENYLEPHRINE-0.9% NACL SYG 1,000 MCG/10 ML SYRINGE ONE (11:19)
--- NOTE | 2022-03-10 12:35 | P.OP ---
Date of Procedure: 03/10/22 Preoperative Diagnosis: Severe osteoarthritis left knee Postoperative Diagnosis: Severe osteoarthritis left knee Procedure(s) Performed: Left total knee arthroplasty Implants: [employer] Journey II CR Oxinium cruciate retaining femoral component size 6, left [employer] nonporous tibial baseplate size 5, left [employer] Journey II, XLPE Deep Dished articular insert, size 11 mm, Size 5-6, left [employer] Frieda II resurfacing patellar component, oval, 32 mm All components were cemented using Palacos R bone cement The articulation is Oxinium on polyethylene Anesthesia: spinal Surgeon: Regino Etienne Head Custodian #1: Jeremiah Armstrong Estimated Blood Loss (ml): 30 Pathology: other (Bone and cartilage) Condition: stable Disposition: PACU Indications for Procedure: After failure of conservative treatment we discussed the surgical and nonsurgical treatment options at length. Patient wishes to proceed with a total knee arthroplasty. Complications specific to this procedure were discussed at length, including but not limited to infection, bleeding, stiffness, and nerve injury. Covid-19 was also discussed at length with the patient, and they are aware of the current policies and procedures. The patient was given the option of delaying surgery, but they elect to proceed knowing these risks. Patient is aware of all these complications and informed consent was obtained Operative Findings: The operative findings are consistent with severe osteoarthritis of the left knee Description of Procedure: Patient was seen in the preoperative area and the consent was reviewed and the operative site was marked with a skin marker. The patient verified the procedure and the operative site. An adductor canal pain catheter and an iPACK block was placed by anesthesia in the preoperative area. The patient was then brought to the operating room and given preoperative antibiotics intravenously. A gram of transexamic acid was given intravenously. A spinal anesthetic was administered by the anesthesia department. A tourniquet was placed on the upper thigh and the lower extremity was prepped with chlorhexidine and draped in usual sterile fashion. A universal timeout was then performed which confirmed the patient's name, surgical site, ALLERGIES, and consent. The lower extremity was then exsanguinated and tourniquet was inflated to 250 mmHg. A standard anterior midline approach to the knee was performed. The skin and subcutaneous tissue were sharply dissected down to the patellar tendon. A medial parapatellar arthrotomy was then performed. The knee was then extended, the patellar was everted, and the knee was again flexed. The infra-patellar fat pad was removed in order to enhance exposure. The anterior horns of both menisci were excised, and a release was performed to the posterior medial aspect of the knee. On gross visual inspection, there was complete loss of articular cartilage in the medial and patellofemoral joint spaces. There was also significant cartilage damage in the lateral compartment. There were multiple periarticular osteophytes globally about the knee which were then removed with a Ronguer. The femoral canal was then opened with the 9.5 mm intramedullary drill. The 8 mm intramedullary zaire was then inserted into the femoral canal with the distal femoral cutting guide set for 5 of valgus. The distal femoral cutting block was then pinned in place. The intramedullary zaire was then removed, and the distal femur was then cut. The cutting block was then removed and the cut was checked for symmetry. The resected bone was then measured to confirm the appropriate distal femoral resection. Next, the sizing guide was then placed and set for 3 external rotation based off of the epicondylar axis and Whitesides line. Pins were then placed and the drill holes, and the femur was sized with the sizing stylus. The pins were then removed, and the sizing guide was then removed. The spikes of the femoral block was then placed into the predrilled holes, and malleted into place. Two 45 mm pins were then placed into the fixation holes on the cutting block. An gumaro wing was then used to ensure there would be no notching with the anterior cut. The anterior condyles were cut without notching. The anterior chord cut was then performed, followed by the posterior cut, posterior chamfer cut, and the anterior chamfer cut. The collateral ligaments were protected during the entire process. The cutting block was then removed. Any remaining bone and osteophytes were removed from the femur with a Ronguer. The femoral canal was plugged with autologous bone. Attention was then directed to the tibia. The remaining ACL was removed with a Ronguer, and the tibia was then gently subluxed forward with a large bent knee retractor. Any remaining menisci were excised. The posterior lateral corner was cauterized in order to coagulate the lateral geniculate artery. The extra medullary tibial cutting guide was then placed, set for the appropriate rotation, slope, and depth of resection. The proximal tibia cutting guide was then pinned in place. Proximal tibia was then cut and sized. The femoral trial was placed. A narrow saw blade was then used to remove the anterior intracondylar femoral bone. The CR notch trial was then placed. The tibial trial was placed with the appropriate-sized insert. The knee was able to fully extend and flex to 130 and was stable throughout all range of motion. The knee was then extended and the patella was everted. Patella was then measured, and then using an osteotomy guide, the patella was cut at the appropriate level. The patella was then measured and drilled and the patella trial was then placed. The knee was then taken through range of motion with the patella trial and the patella tracked normally using the no thumbs technique. The knee was then extended patella trial was then removed and the patella was everted. Knee was then flexed and lug holes were drilled through the femoral trial and the femoral trial was then removed. The tibial was then re-exposed, and the tibial broach guide was then pinned in place after it was set for the appropriate rotation to allow for the most coverage without overhang. The tibia was then reamed and broached. The cut surfaces of bone were then irrigated with pulsatile lavage. The knee was also irrigated with Irrisept solution. The components were then opened, the cement was mixed, and the components were then cemented in place. The cement was allowed to harden with the knee in full extension. After the cemented hardened, the tourniquet was released and hemostasis was obtained. A second gram of transexamic acid was given intravenously. The knee was again irrigated. The knee was again taken through range of motion and found to be stable throughout all range of motion of 0-130, and the patella tracked normally. The fascia was then closed with 0 Vicryl followed by #2 strata fix suture. The subcutaneous tissue was closed with 3-0 Vicryl and 3-0 strata fix. Exofin glue was used for the skin and placed with the knee in flexion. After the glue had dried, and Optafoam silver impregnated dressing was applied. The patient was then transferred to recovery room in stable condition. The document control assistant LYLE Denney was required due the complexity surgery and the need for a skilled ophthalmic surgical assistant. She assisted in positioning, draping, retraction, and closure of the wound.
[2022-03-10] MEDS ORDERED: LACTATED RINGERS 1,000 ML IV ONE (12:48)
--- NOTE | 2022-03-10 12:56 | P.ANPRN ---
Procedure Note - Anesthesia - Nerve Block Performed Left Adductor Canal Time Out Performed: Yes (:44) Date of Procedure: 03/10/22 Procedure Start Time: Procedure Stop Time: :54 Location of Patient: PreOp Indication: Acute Post-Operative Pain, Requested by Surgeon (Dr Regino Etienne) Sedation Type: Sedate with meaningful contact maintained Preparation: Sterile Prep, Sterile Dressing Position: Supine Catheter: Indwelling Needle Types: Pajunk Needle Gauge: Other (see comment) (22g) Ultrasound used to visualize needle placement: Yes Ultrasound used to observe medication spread: Yes Injectate: 0.5% Ropivacaine (see comment for volume) Blood Aspirated: No Pain Paresthesia on Injection Noted: No Resistance on Injection: Normal Image Stored and Saved: Yes Events: Uneventful and Well Tolerated
--- NOTE | 2022-03-10 12:58 | P.ANPRN ---
Procedure Note - Anesthesia - Nerve Block Performed Left iPack Time Out Performed: Yes (:56) Date of Procedure: 03/10/22 Procedure Start Time: : Procedure Stop Time: :59 Location of Patient: PreOp Indication: Acute Post-Operative Pain, Requested by Surgeon (Dr Regino Etienne) Sedation Type: Sedate with meaningful contact maintained Preparation: Sterile Prep Position: Supine Catheter: None Needle Types: Pajunk Needle Gauge: 21 Ultrasound used to visualize needle placement: Yes Ultrasound used to observe medication spread: Yes Injectate: 0.5% Ropivacaine (see comment for volume) (15cc +5cc PF Normal saline) Blood Aspirated: No Pain Paresthesia on Injection Noted: No Resistance on Injection: Normal Image Stored and Saved: Yes Events: Uneventful and Well Tolerated
[2022-03-10] MEDS ORDERED: HYDROmorphone 0.5 MG/0.5 ML SYRINGE IVP ONE ×3 (13:18→13:47)
[2022-03-10] MEDS ORDERED: NALOXONE 0.4 MG/ML 1 ML VIAL IV PRN (13:32)
[2022-03-10] MEDS ORDERED: ONDANSETRON 4 MG/2 ML VIAL IVP PRN (13:33)
[2022-03-10] MEDS ORDERED: KETOROLAC 15 MG/ML 1 ML VIAL IVP ONE (13:33)
[2022-03-10] MEDS ORDERED: hydrOXYzine pamoate 25 MG CAP PO PRN (13:33)
[2022-03-10] MEDS ORDERED: HYDROmorphone 0.5 MG/0.5 ML SYRINGE IVP PRN ×2 (13:33)
[2022-03-10] MEDS ORDERED: HYDROcodone/APAP 5-325MG 1 EACH TAB PO PRN (13:33)
[2022-03-10] MEDS ORDERED: MAGNESIUM HYDROXIDE 2,400 MG/10 ML CUP PO PRN (13:33)
[2022-03-10] MEDS ORDERED: TEMAZEPAM 15 MG CAP PO PRN (13:33)
[2022-03-10] MEDS ORDERED: ROPIVACAINE 0.2%-NS ON-Q PUMP 1,090 MG, EMPTY PAIN BALL 1 EACH MISCELLANE PRN (13:52)
--- NOTE | 2022-03-10 14:25 | XR ---
EXAMINATION TYPE: XR knee limited LT DATE OF EXAM: 03/10/2022 2:08 PM INDICATION: Patient age:Female; 71 years old; Reason for study: Evaluation for Postop abnormality and alignment; COMPARISON: No direct comparison. TECHNIQUE: The Left knee(s) was examined in frontal and lateral projections. FINDINGS: Post surgical changes from left knee arthroplasty with femoral and tibial components addit ional patellar component identified. Hardware appears intact with appropriate alignment. No sizable j oint effusion. Soft tissue edema with expected subcutaneous gas identified. IMPRESSION: Postsurgical changes from left knee arthroplasty with hardware in appropriate alignment.
[2022-03-10] MEDS: HYDROcodone/APAP 7.5-325MG 1 EACH TAB PO PRN ×2 (16:40→23:23)
[2022-03-10] MEDS: HYDROmorphone 0.5 MG/0.5 ML SYRINGE IVP PRN (18:42)
[2022-03-10] MEDS: SENNOSIDES-DOCUSATE SODIUM 1 EACH TAB PO SCH (19:15)
[2022-03-11] MEDS: HYDROmorphone 0.5 MG/0.5 ML SYRINGE IVP PRN (03:22)
[2022-03-11] MEDS: LACTATED RINGERS 1,000 ML IV SCH ×2 (05:10→08:09)
[2022-03-11] MEDS: HYDROcodone/APAP 7.5-325MG 1 EACH TAB PO PRN ×3 (06:24→17:13)
[2022-03-11 06:45] LABS: Basophils % (A) 1 %; Eosinophils % (A) 0 %; HCT 38.7 % (34.0-46.0); HGB 12.6 gm/dL (11.4-16.0); Lymphocytes # (A) 1.2 k/uL (1.0-4.8); Lymphocytes % (A) 16 %; MCHC 32.6 g/dL (31.0-37.0); MCV 89.1 fL (80.0-100.0); Mean Platelet Volume 7.4; Monocytes # (A) 0.6 k/uL (0-1.0); Monocytes % (A) 8 %; Neutrophils # (A) 5.5 k/uL (1.3-7.7); Neutrophils % (A) 74 %; Platelet Count 227 k/uL (150-450); RBC 4.34 m/uL (3.80-5.40); RDW 13.4 % (11.5-15.5); WBC 7.5 k/uL (3.8-10.6)
--- NOTE | 2022-03-11 07:47 | P.PN ---
Subjective Progress Note Date: 03/11/22 Principal diagnosis: Status post Total left knee arthroplasty. Primary osteoarthritis left knee. Nubia is status post total left knee arthroplasty. She is postop day #1. When she up this morning she had significant hypotension and dizziness. Her pulse ox was checked at that time and was 85. She was placed on oxygen. Hemoglobin today is 12.6. Vital signs are otherwise stable. Objective - Vital Signs Vital signs: Vital Signs Temp 98.5 F 03/11/22 01:30 Pulse 63 03/11/22 01:30 Resp 16 03/11/22 01:30 BP 106/64 03/11/22 01:30 Pulse Ox 97 03/11/22 01:30 FiO2 Intake & Output 03/10/22 03/11/22 03/11/22 18:59 06:59 18:59 Intake Total 1830 540 Output Total 30 Balance 1800 540 Weight 85.8 kg Intake: IV 1350 Oral 480 540 Output: Estimated Blood Loss 30 - Exam This is a pleasant 71-year-old female in no acute distress. She is alert and oriented 3. Exam of the left knee reveals that her dressing is intact. There is some bloody drainage noted on the dressing. She has full foot and ankle motion without difficulty or pain. She is unable to straight leg raise or bend the knee actively. Neurovascular status to the lower extremity is intact. - Labs CBC & Chem 7: 03/11/22 06:24 Assessment and Plan (1) Primary localized osteoarthritis of left knee Current Visit: Yes Status: Acute Code(s): M17.12 - UNILATERAL PRIMARY OSTEOARTHRITIS, LEFT KNEE SNOMED Code(s): 366500744104996 (2) Status post total left knee replacement Current Visit: Yes Status: Acute Code(s): Z96.652 - PRESENCE OF LEFT ARTIFICIAL KNEE JOINT SNOMED Code(s): 9104645292406 Plan: The clinical findings are discussed with the patient. The patient is evaluated by Dr. Etienne as well today. Continue care. We will address pain management. Likely discharge to home tomorrow.
[2022-03-11] MEDS: ASPIRIN 325 MG TAB PO SCH ×2 (08:08→20:19)
[2022-03-11] MEDS: KETOROLAC 15 MG/ML 1 ML VIAL IVP SCH ×3 (08:08→17:12)
--- NOTE | 2022-03-11 09:44 | P.PN ---
Progress Note - Text The patient is status post, left adductor canal catheter placement. The catheter was placed for postoperative pain control, status post total left knee arthroplasty. Ropivacaine 0.2% is infusing at 8 mLs per hour. The patient has no complaints of left lower extremity numbness or weakness. Patient's VAS score is6-10. The patient is complaining of generalized knee pain superiorly and inferiorly to the knee. The patient has been given oral pain meds to supplement. Plan:Increase the infusion to [address] Etienne was also present, he will adjust her supplemental pain medication.
--- NOTE | 2022-03-11 10:04 | US ---
EXAMINATION TYPE: US venous doppler duplex LE LT DATE OF EXAM: 03/11/2022 9:50 AM COMPARISON: CLINICAL HISTORY: edema, r/o dvt. Edema, LLE pain after knee replacement surgery one day ago SIDE PERFORMED: Left TECHNIQUE: The lower extremity deep venous system is examined utilizing real time linear array sonog sonya with graded compression, doppler sonography and color-flow sonography. VESSELS IMAGED: Common Femoral Vein Deep Femoral Vein Greater Saphenous Vein * Femoral Vein Popliteal Vein Small Saphenous Vein * Proximal Calf Veins (* superficial vessels) Left Leg: Unable to evaluate Left Pop V due to swelling and bandage in area, No DVT seen in Femoral V IMPRESSION: There are limitations to the exam. No evident deep venous thrombosis within the left lowe r extremity as described
--- NOTE | 2022-03-11 10:33 | P.CONS ---
History of Present Illness - Reason for Consult Consult date: 03/11/22 - History of Present Illness HISTORY OF PRESENT ILLNESS This is a 71 year old female patient of Dr. Dann Samson with no significant past medical history other than osteoarthritis. Patient has been brought into the hospital under the care of Dr. Etienne for left total knee arthroplasty. Patient states that she has had ongoing problems for many years. Her right knee was worse and she had surgery on that one in 2017. Due to Covid restrictions, surgery has been delayed until now on the left knee. She states she is having more pain last night and today and was unable to sleep due to pain. She has a Q-pump in place which we have increased confusion from 8 ML's per hour to 10 ML's per hour. Patient has been afebrile, heart rate 61, blood pressure 113/67, pulse ox 92% on 2 L nasal cannula. CBC is unremarkable. Medication reconciliation will be reviewed in anticipation of patient will tentatively being discharged today. Left lower extremity venous Doppler revealed limitations to study. No evident DVT. REVIEW OF SYSTEMS Constitutional: No fever, no chills, no night sweats. No weight change. No weakness, fatigue or lethargy. No daytime sleepiness. EENT: No headache. No blurred vision or double vision, no loss of vision. No loss of Hearing, no ringing in the ears, no dizziness. No nasal drainage or congestion. No epistaxis. No sore throat. Lungs: No shortness of breath, cough, no sputum production. No wheezing. Cardiovascular: No chest pain, reports left lower extremity edema. No palpitations. No paroxysmal nocturnal dyspnea. No orthopnea. No lightheadedness or dizziness. No syncopal episodes. Abdominal: No abdominal pain. No nausea, vomiting. No diarrhea. No constipation. No bloody or tarry stools. No loss of appetite. Genitourinary: No dysuria, increased frequency, urgency. No urinary retention. Musculoskeletal: No myalgias. No muscle weakness, no gait dysfunction, no frequent falls. No back pain. No neck pain. Reports left knee pain Integumentary: No wounds, no lesions. No rash or pruritus. No unusual bruising. No change in hair or nails. Neurologic: No aphasia. No facial droop. No change in mentation. No head injury. No headache. No paralysis. No paresthesia. Psychiatric: No depression. No anxiety. No mood swings. Endocrine: No abnormal blood sugars. No weight change. No excessive sweating or thirst. No cold intolerance. SOCIAL HISTORY Patient is a lifelong nonsmoker, no alcohol abuse, marijuana or illicit drug us e. FAMILY HISTORY Father at age 77 from prostate cancer with metastatic disease to the bones. Mother is alive at age 92 with history of TB status post lung resection. Patient has 2 brothers with no major medical problems. Patient has one sister also with osteoarthritis in knee replacement. Patient has 3 children, 2 boys and one girl with no major medical problems.. PHYSICAL EXAMINATION Gen: This is a 71-year-old female. She is resting in bed and appears to be comfortable and in no acute distress. HEENT: Head is atraumatic, normocephalic. Pupils equal, round. Sclerae is anicteric. NECK: Supple. No JVD. No lymphadenopathy. No thyromegaly. LUNGS: Clear to auscultation. No wheezes or rhonchi. No intercostal retractions. HEART: Regular rate and rhythm. No murmur. ABDOMEN: Soft. Bowel sounds are present. No masses. No tenderness. EXTREMITIES: Dressing in place to the left knee, significant swelling to the left knee and calf. Dorsalis pedis palpable bilaterally. NEUROLOGICAL: Patient is awake, alert and oriented x3. Cranial nerves 2 through 12 are grossly intact. ASSESSMENT AND PLAN Osteoarthritis status post left total knee arthroplasty, 03/10. Continue current pain management, aspirin for DVT prophylaxis, PT and OT. Edema to the left knee and calf. Doppler ultrasound ordered to rule out DVT. Osteoarthritis to bilateral knees. DVT prophylaxis. Patient's been started on aspirin 325 mg twice daily. GI prophylaxis. Protonixprot DISCHARGE PLAN Most likely home with homecare. Impression and plan of care have been directed as dictated by the signing physician. Lydia Warner nurse practitioner acting as scribe for signing physician. Past Medical History Past Medical History: Osteoarthritis (OA) Additional Past Medical History / Comment(s): prolapsed uterus-uses a pessary History of Any Multi-Drug Resistant Organisms: None Reported Past Surgical History: Bladder Surgery, Hernia Repair, Hysterectomy, Joint Replacement, Orthopedic Surgery, Tonsillectomy Additional Past Surgical History / Comment(s): umbilical hernia repair, bilat knee scopes, lt ankle tendon repair, colonoscopy,. D&C after miscarriage, right knee total arthroplasty, BLADDER REPAIR WITH HYSTERECTOMY Past Anesthesia/Blood Transfusion Reactions: Motion Sickness, Postoperative Nausea & Vomiting (PONV) Past Psychological History: No Psychological Hx Reported Smoking Status: Never smoker Past Alcohol Use History: Rare Additional Past Alcohol Use History / Comment(s): Patient is a lifelong nonsmoker. No marijuana or illicit drug use. Social alcohol use. Past Drug Use History: None Reported - Past Family History Father Family Medical History: Cancer Additional Family Medical History / Comment(s): Father from prostate cancer with metastatic disease to the bone Mother Family Medical History: No Reported History Additional Family Medical History / Comment(s): Mother is alive at age 86 with history of TB status post lung resection. Brother(s) Additional Family Medical History / Comment(s): Patient has 2 brothers with no major medical problems. Patient has one sister that has osteoarthritis and knee replacement. Patient has 3 children, 2 boys and one girl with no major medical problems. Medications and Allergies Home Medications Medication Instructions Recorded Confirmed Type Acetaminophen Tab [Tylenol] 650 mg PO Q4H PRN 03/05/22 03/10/22 History Ibuprofen [Advil] 400 mg PO Q8HR PRN 03/05/22 03/10/22 History Multivitamins, Thera [Multivitamin 1 tab PO DAILY 03/05/22 03/10/22 History (formulary)] Aspirin 325 mg PO BID #60 tab 03/10/22 Rx Celecoxib [CeleBREX] 200 mg PO DAILY PRN #30 cap 03/10/22 Rx HYDROcodone/APAP 7.5-325MG [[place] 1 each PO Q6HR PRN #28 tab 03/10/22 Rx 7.5-325] Ondansetron [Zofran] 4 mg PO Q6HR PRN #30 tab 03/10/22 Rx Sennosides-Docusate Sodium 1 tab PO BID PRN #60 tablet 03/10/22 Rx [Senokot-S] Allergies Allergy/AdvReac Type Severity Reaction Status Date / Time sulfamethoxazole Allergy Rash/Hives Verified 03/10/22 09:47 [From Bactrim] trimethoprim [From Bactrim] Allergy Rash/Hives Verified 03/10/22 09:47 Physical Exam Vitals: Vital Signs Temp Pulse Pulse Resp BP Pulse Ox 03/11/22 07:48 98.6 F 61 113/67 92 L 03/11/22 01:30 98.5 F 63 16 106/64 97 03/10/22 18:55 97.5 F L 67 16 119/74 95 03/10/22 16:35 59 L 118/75 97 03/10/22 16:20 66 112/70 92 L 03/10/22 16:05 58 L 111/71 92 L 03/10/22 15:50 58 L 115/75 92 L 03/10/22 15:35 60 115/75 94 L 03/10/22 15:20 60 118/74 93 L 03/10/22 15:05 64 121/80 89 L 03/10/22 14:50 64 127/77 92 L 03/10/22 14:35 97.3 F L 62 17 125/77 92 L 03/10/22 14:12 71 16 111/62 96 03/10/22 13:57 65 16 118/61 94 L 03/10/22 13:42 63 16 116/63 95 03/10/22 13:27 67 16 113/61 98 03/10/22 13:12 62 16 116/63 97 03/10/22 11:06 77 15 118/72 98 03/10/22 09:57 97.0 F L 85 15 134/78 94 L Intake and Output 03/10/22 03/11/22 03/11/22 22:59 06:59 14:59 Intake Total 480 540 Balance 480 540 Intake: Oral 480 540 Results CBC & Chem 7: 03/11/22 06:24
[2022-03-11] MEDS: SENNOSIDES-DOCUSATE SODIUM 1 EACH TAB PO SCH (20:18)
[2022-03-12] MEDS: KETOROLAC 15 MG/ML 1 ML VIAL IVP SCH ×3 (00:06→12:38)
[2022-03-12] MEDS: HYDROcodone/APAP 7.5-325MG 1 EACH TAB PO PRN ×2 (00:10→06:20)
[2022-03-12] MEDS: ASPIRIN 325 MG TAB PO SCH (07:26)
[2022-03-12] MEDS ORDERED: PANTOPRAZOLE 40 MG TABLET PO SCH (07:30)
[2022-03-12 08:01] VITALS: PULSE 88; RESP 16; TEMP 98.6
--- NOTE | 2022-03-12 08:41 | P.DS ---
Providers Date of admission: 03/11/22 06:53 Expected date of discharge: 03/12/22 Attending physician: Regino Etienne Consults: 03/10/22 13:33 Consult Physician Routine Consulting Provider: Rodger Carbajal Consult Reason/Comments: Medical management post-op Do you want consulting provider notified?: Yes Primary care physician: Dann Samson - Discharge Diagnosis(es) (1) Primary localized osteoarthritis of left knee Current Visit: Yes Status: Acute (2) Status post total left knee replacement Current Visit: Yes Status: Acute Hospital Course: This is a 71-year-old female who was last seen with complaint of continued left knee pain. The patient has a known history of degenerative arthritis of the left knee and presents to discuss surgical options. After discussion and consideration the patient elects to proceed with total left knee arthroplasty. The patient is seen preoperatively by her primary care physician and cleared for surgery. The patient is admitted to [facility] for total left knee arthroplasty. The procedures performed without complication or sequelae. She has pain management issues postoperatively. She also had a near syncopal episode on postoperative day #1. She had bloody drainage to the dressing which was changed on postoperative day #2. Today she is doing much better with pain. She has no new complaints or concerns today. Vital signs are stable.. Labs are stable at discharge. the patient is ambulating well with walker with minimal assistance. The patient is discharged to home on postop day #2 pending medical clearance. Please see orders and refer to the [facility] rec for accurate list of medications. Patient Condition at Discharge: Good Plan - Discharge Summary Discharge Rx Participant: No New Discharge Prescriptions: New Aspirin 325 mg PO BID #60 tab Celecoxib [CeleBREX] 200 mg PO DAILY PRN #30 cap PRN Reason: Pain Ondansetron [Zofran] 4 mg PO Q6HR PRN #30 tab PRN Reason: Nausea HYDROcodone/APAP 7.5-325MG [[place] 7.5-325] 1 each PO Q6HR PRN #28 tab PRN Reason: Pain Sennosides-Docusate Sodium [Senokot-S] 1 tab PO BID PRN #60 tablet PRN Reason: Constipation Ketorolac [Toradol] 10 mg PO Q6HR #12 tab Continue Ibuprofen [Advil] 400 mg PO Q8HR PRN PRN Reason: Pain Multivitamins, Thera [Multivitamin (formulary)] 1 tab PO DAILY Acetaminophen Tab [Tylenol] 650 mg PO Q4H PRN PRN Reason: Pain Discharge Medication List Acetaminophen Tab [Tylenol] 650 mg PO Q4H PRN 03/05/22 [History] Ibuprofen [Advil] 400 mg PO Q8HR PRN 03/05/22 [History] Multivitamins, Thera [Multivitamin (formulary)] 1 tab PO DAILY 03/05/22 [History] Aspirin 325 mg PO BID #60 tab 03/10/22 [Rx] Celecoxib [CeleBREX] 200 mg PO DAILY PRN #30 cap 03/10/22 [Rx] HYDROcodone/APAP 7.5-325MG [[place] 7.5-325] 1 each PO Q6HR PRN #28 tab 03/10/22 [Rx] Ondansetron [Zofran] 4 mg PO Q6HR PRN #30 tab 03/10/22 [Rx] Sennosides-Docusate Sodium [Senokot-S] 1 tab PO BID PRN #60 tablet 03/10/22 [Rx] Ketorolac [Toradol] 10 mg PO Q6HR #12 tab 03/12/22 [Rx] Follow up Appointment(s)/Referral(s): Regino Etienne DO [Doctor of Osteopathic Medicine] - 2 Weeks Activity/Diet/Wound Care/Special Instructions: 1. Patient to continue to be weight-bear as tolerated on the left lower extremity; may ambulate with the assistance of a walker 2. Patient may apply ice over the left knee for comfort support as needed 3. Continue anticoagulation with aspirin 325 mg twice a day until completion of prescription 4. Take medications as prescribed. Do not take ketorolac with Celebrex. He may begin Celebrex after ketorolac discontinued. 5. Patient may shower with dressing intact over the left knee 6. Keep dressing intact over the left hip for 7 days 7. Patient may remove dressing after 1 week and may shower without a dressing at that time if incision site remains clean and dry 8. Any questions or concerns contact [facility] at [phone]
--- NOTE | 2022-03-12 09:25 | P.PN ---
Subjective Progress Note Date: 03/12/22 HISTORY OF PRESENT ILLNESS This is a 71 year old female patient of Dr. Dann Samson with no significant past medical history other than osteoarthritis. Patient has been brought into the hospital under the care of Dr. Etienne for left total knee arthroplasty. Patient states that she has had ongoing problems for many years. Her right knee was worse and she had surgery on that one in 2017. Due to Covid restrictions, surgery has been delayed until now on the left knee. She states she is having more pain last night and today and was unable to sleep due to pain. She has a Q-pump in place which we have increased confusion from 8 ML's per hour to 10 ML's per hour. Patient has been afebrile, heart rate 61, blood pressure 113/67, pulse ox 92% on 2 L nasal cannula. CBC is unremarkable. Medication reconciliation will be reviewed in anticipation of patient will tentatively being discharged today. Left lower extremity venous Doppler revealed limitations to study. No evident DVT. 03/12: [facility] Patient states her pain is much better controlled today. She feels that she is doing well and could go home today. She did walk with physical therapy today and anticipate they will be here shortly. Patient remains afebrile, heart rate 71, blood pressure 109/67, pulse ox 93% on room air. Patient is reaching 2000 ML's on incentive spirometry. The patient will require walker for home in order to do her ADLs secondary to the left knee surgery and osteoarthritis. manager quality improvement making arrangements. Medication reconciliation has no changes from yesterday. REVIEW OF SYSTEMS Constitutional: No fever, no chills, no night sweats. No weight change. No weakness, fatigue or lethargy. No daytime sleepiness. EENT: No headache. No blurred vision or double vision, no loss of vision. No loss of Hearing, no ringing in the ears, no dizziness. No nasal drainage or congestion. No epistaxis. No sore throat. Lungs: No shortness of breath, cough, no sputum production. No wheezing. Cardiovascular: No chest pain, reports left lower extremity edema. No palpitations. No paroxysmal nocturnal dyspnea. No orthopnea. No lightheadedness or dizziness. No syncopal episodes. Abdominal: No abdominal pain. No nausea, vomiting. No diarrhea. No constipation. No bloody or tarry stools. No loss of appetite. Genitourinary: No dysuria, increased frequency, urgency. No urinary retention. Musculoskeletal: No myalgias. No muscle weakness, no gait dysfunction, no frequent falls. No back pain. No neck pain. Reports left knee pain-improved. Integumentary: No wounds, no lesions. No rash or pruritus. No unusual bruising. No change in hair or nails. Neurologic: No aphasia. No facial droop. No change in mentation. No head injury. No headache. No paralysis. No paresthesia. Psychiatric: No depression. No anxiety. No mood swings. Endocrine: No abnormal blood sugars. No weight change. No excessive sweating or thirst. No cold intolerance. PHYSICAL EXAMINATION Gen: This is a 71-year-old female. She is resting in bed and appears to be comfortable and in no acute distress. HEENT: Head is atraumatic, normocephalic. Pupils equal, round. Sclerae is anicteric. NECK: Supple. No JVD. No lymphadenopathy. No thyromegaly. LUNGS: Clear to auscultation. No wheezes or rhonchi. No intercostal retractions. HEART: Regular rate and rhythm. No murmur. ABDOMEN: Soft. Bowel sounds are present. No masses. No tenderness. EXTREMITIES: Dressing in place to the left knee, significant swelling to the left knee and calf. Dorsalis pedis palpable bilaterally. NEUROLOGICAL: Patient is awake, alert and oriented x3. Cranial nerves 2 through 12 are grossly intact. ASSESSMENT AND PLAN Osteoarthritis status post left total knee arthroplasty, 03/10. Continue current pain management, aspirin for DVT prophylaxis with aspirin, PT and OT. Edema to the left knee and calf. Doppler ultrasound ruled out DVT. Osteoarthritis to bilateral knees. DVT prophylaxis. Patient has been started on aspirin 325 mg twice daily. GI prophylaxis. Protonixprot DISCHARGE PLAN Home with [facility]. Impression and plan of care have been directed as dictated by the signing physician. Lydia Warner nurse practitioner acting as scribe for signing physician. Objective - Vital Signs Vital signs: Vital Signs Temp 98.7 F 03/12/22 01:35 Pulse 71 03/12/22 01:35 Resp 18 03/12/22 01:35 BP 109/67 03/12/22 01:35 Pulse Ox 93 L 03/12/22 01:35 FiO2 Intake & Output 03/11/22 03/12/22 03/12/22 18:59 06:59 18:59 Output Total 0 Balance 0 Output: Urine 0 Other: Voiding Method Toilet # Voids 3 - Labs CBC & Chem 7: 03/11/22 06:24
[2022-03-12 14:27] VITALS: BP 110/70
== END 2022-03-12 15:30 ==
LOC: OR 09:21 → 4SSUR 13:15 → OR 03-11 06:53 → 4SSUR 03-11 06:53
PROVIDERS: ADMIT Orthopaedic Surgery; ATTEND Orthopaedic Surgery
DX: M17.12 Unilateral primary osteoarthritis, left knee (principal); I95.81 Postprocedural hypotension; R55 Syncope and collapse; R42 Dizziness and giddiness; Z97.3 Presence of spectacles and contact lenses; Z96.651 Presence of right artificial knee joint; Z97.2 Presence of dental prosthetic device (complete) (partial); Z98.890 Other specified postprocedural states
CPT/HCPCS: 27447; 94760 ×2; 97116; 97161; 64999; 64448; 76942; 85025; 88300; 73560; 93971; G0378 ×2; C1713; C1776; J2250; J1100; J0690 ×2; J2405 ×2; J3010; J2795 ×2; J1885 ×3; J2370; J2704; J1170 ×2; J2001

== ENCOUNTER → 2022-06-17 | Outpatient (CLI) | payer BC ==
[2022-06-17 16:07] LABS: HCT 41.8 % (37.2-46.3); HGB 13.8 g/dL (12.0-15.0); MCH 27.6 pg (27.0-32.0); MCV 83.6 fL (80.0-97.0); Mean Platelet Volume 10.1 fL (9.5-12.2); NRBC Per 100 WBC 0 /100 WBCS (0.0-0.0); Platelet Count 348 X 10*3/uL (140-440); RDW 14.3 % (11.5-14.5); WBC 7.63 X 10*3/uL (4.50-10.00)
[2022-06-17 16:48] LABS: Chol/HDL Ratio 3.21 Ratio; LDL Cholesterol,Calculated 136.4 mg/dL (0.0-131.0)
== END | disposition home or self-care (01) ==
LOC: LABWHC1 09:30
PROVIDERS: ATTEND Obstetrics & Gynecology
DX: Z13.220 Encounter for screening for lipoid disorders (principal); E55.9 Vitamin D deficiency, unspecified
CPT/HCPCS: 36415; 80061; 82306; 85027

== ENCOUNTER → 2022-09-22 | Outpatient (CLI) | payer BC | END | disposition home or self-care (01) | LOC: RADMAMWWP 16:34 | PROVIDERS: ATTEND Obstetrics & Gynecology | DX: Z53.9 Procedure and treatment not carried out, unspecified reason (principal) ==

== ENCOUNTER → 2023-10-22 | Outpatient (CLI) | payer BC ==
--- NOTE | 2023-10-22 15:03 | MM ---
Reason for Exam: Screening (asymptomatic). Last mammogram was performed 1 year(s) and 1 month(s) ago. Patient History: Menarche at age 14. First Full-Term at age 22. Hysterectomy at age 68. Postmenopausal. Patient has history of breast feeding. Hormonal Contraceptives, starting at age 20 for 4 years. 03/12/2008, Benign Core Biopsy on the left side. Paternal aunt had breast cancer. Risk Values: Holley 5 year model risk: 1.8%. NCI Lifetime model risk: 5.1%. Prior Study Comparison: 10/12/2016 Bilateral Screening Mammogram, [facility]. 12/24/2017 Bilateral Screening Mammogram, [facility]. 03/18/2020 Bilateral Screening Mammogram, [facility]. 07/07/2021 Bilateral Screening Mammogram, [facility]. 10/15/2022 Bilateral MG 3D screening mammo w/cad, [facility]. Tissue Density: The breast tissue is heterogeneously dense. This may lower the sensitivity of mammography. Findings: Analyzed By CAD. The pattern is symmetrical. No significant interval change is evident. Coarse calcifications are within the right breast. Vascular calcifications within the right breast. Core marker is within the left breast. No suspicious groups of microcalcifications, spiculated or lobular masses, architectural distortion or other secondary signs of malignancy are mammographically apparent. Overall Assessment: Benign, BI-RAD 2 Management: Screening Mammogram of both breasts in 1 year. A negative mammogram report should not preclude additional follow up of suspicious palpable abnormalities. Patient should continue monthly self breast exam. A clinical breast exam by your physician is recommended on an annual basis and results should be correlated with mammographic findings. Electronically signed and approved by: Shashank Sullivan D.O. Radiologis
== END | disposition home or self-care (01) ==
LOC: RADMAMWWP 08:41
PROVIDERS: ATTEND Obstetrics & Gynecology
DX: Z12.31 Encounter for screening mammogram for malignant neoplasm of breast (principal); Z78.0 Asymptomatic menopausal state; Z80.3 Family history of malignant neoplasm of breast
CPT/HCPCS: 77063; 77067

== ENCOUNTER → 2024-08-04 | Outpatient (CLI) | payer BC ==
--- NOTE | 2024-08-04 10:37 | US ---
EXAMINATION TYPE: US venous doppler duplex LE LT DATE OF EXAM: 08/04/2024 10:32 AM COMPARISON: NONE CLINICAL INDICATION: Female, 73 years old with history of M79.605 PAIN IN LEFT LEG; swelling in leg, no h/o dvt TECHNIQUE: The lower extremity deep venous system is examined utilizing real time linear array sonog sonya with graded compression, color doppler sonography, and spectral doppler. SIDE PERFORMED: Left FINDINGS: VESSELS IMAGED: Common Femoral Vein Deep Femoral Vein Greater Saphenous Vein * Femoral Vein Popliteal Vein Small Saphenous Vein * Proximal Calf Veins (* superficial vessels) Left Leg: Negative for DVT, Color Doppler imaging shows patency of the vessels. Spectral waveforms a re within normal limits. IMPRESSION: No ultrasound evidence for deep venous thrombosis. [facility], , 08/04/2024 10:34 AM
== END | disposition home or self-care (01) ==
LOC: RADUSWWP 10:00
PROVIDERS: ATTEND Family Medicine
DX: M79.605 Pain in left leg (principal)

== ENCOUNTER → 2024-08-10 | Outpatient (CLI) | payer BC ==
--- NOTE | 2024-08-10 15:11 | US ---
EXAMINATION TYPE: US venous doppler duplex LE LT DATE OF EXAM: 08/10/2024 2:52 PM COMPARISON: Left lower extremity venous ultrasound 08/04/2024, 03/11/2022 CLINICAL INDICATION: Female, 73 years old with history of I80.9 PHLEBITIS AND THROMBOPHLEBITIS; left leg pain persisted for over a week, US done 6 days ago was also negative TECHNIQUE: The lower extremity deep venous system is examined utilizing real time linear array sonog sonya with graded compression, color doppler sonography, and spectral doppler. SIDE PERFORMED: Left FINDINGS: VESSELS IMAGED: Common Femoral Vein Deep Femoral Vein Greater Saphenous Vein * Femoral Vein Popliteal Vein Small Saphenous Vein * Proximal Calf Veins (* superficial vessels) Left Leg: Negative for DVT, Color Doppler imaging shows patency of the vessels. Spectral waveforms a re within normal limits. IMPRESSION: No evidence of deep vein thrombosis of the left lower extremity. [facility], , 08/10/2024 3:09 PM
== END | disposition home or self-care (01) ==
LOC: RADUSWWP 14:24
PROVIDERS: ATTEND Orthopaedic Surgery
DX: I80.9 Phlebitis and thrombophlebitis of unspecified site (principal)

== ENCOUNTER → 2024-12-07 | Outpatient (CLI) | payer BC ==
--- NOTE | 2024-12-08 07:26 | MM ---
Reason for Exam: Screening (asymptomatic). Last mammogram was performed 1 year(s) and 1 month(s) ago. Patient History: Menarche at age 14. First Full-Term at age 22. Hysterectomy at age 68. Postmenopausal. Patient has history of breast feeding. Hormonal Contraceptives, starting at age 20 for 4 years. 03/12/2008, Benign Core Biopsy on the left side. Paternal aunt had breast cancer. Risk Values: Holley 5 year model risk: 1.9%. NCI Lifetime model risk: 4.6%. Prior Study Comparison: 07/07/2021 Bilateral Screening Mammogram, [facility]. 10/15/2022 Bilateral MG 3D screening mammo w/cad, [facility]. 10/22/2023 Bilateral MG 3D screening mammo w/cad, [facility]. Tissue Density: The breasts are extremely dense, which lowers the sensitivity of mammography. Findings: Analyzed By CAD. There is no suspicious group of microcalcifications or new suspicious mass in either breast. Surgical clips in the left breast. Benign appearing calcifications. Overall Assessment: Benign, BI-RAD 2 Management: Screening Mammogram of both breasts in 1 year. . Patient should continue monthly self-breast exams. A clinical breast exam by your physician is recommended on an annual basis. This exam should not preclude additional follow-up of suspicious palpable abnormalities. Note on Holley scores and lifetime risk: 1. A Holley score greater than 3% is considered moderate risk. If this is the case, consider specialist referral to assess eligibility for a risk reducing agent. 2. If overall lifetime risk for the development of breast cancer is 20% or higher, the patient may qualify for future screening with alternating mammogram and breast MRI. [facility], , 12/08/2024 7:23 AM. Electronically signed and approved by: Rodger Ritchie M.D. Radiologis
== END | disposition home or self-care (01) ==
LOC: RADMAMWWP 16:17
PROVIDERS: ATTEND Family Medicine
DX: Z12.31 Encounter for screening mammogram for malignant neoplasm of breast (principal); R92.343 Mammographic extreme density, bilateral breasts; Z78.0 Asymptomatic menopausal state; Z80.3 Family history of malignant neoplasm of breast
CPT/HCPCS: 77063; 77067